=== PATIENT | female | born 1990 | race Caucasian/White ===

== ENCOUNTER 2020-02-06 07:00 | Outpatient (CLI) | payer OTHER ==
[2020-02-06 21:18] LABS: TRICHOMONAS VAGINALIS DNA NEGATIVE (NEGATIVE)
== END 2020-02-06 23:59 | disposition home or self-care (01) ==
LOC: LAB.R 07:00
PROVIDERS: ATTEND Advanced Practice Midwife
DX: Z36.85 Encounter for antenatal screening for Streptococcus B (principal); Z34.80 Encounter for supervision of other normal pregnancy, unspecified trimester; Z36.89 Encounter for other specified antenatal screening
CPT/HCPCS: 87491; 87591; 87661; 87797

== ENCOUNTER 2020-02-13 16:09 | Outpatient (CLI) | payer OTHER ==
[2020-02-13 16:26] LABS: MEAN CORPUSCULAR HEMOGLOBIN 31.4 pg (27.0-31.0); MEAN CORPUSCULAR HGB CONC 33.6 g/dL (32.0-36.0); MEAN CORPUSCULAR VOLUME 93.7 fL (81.0-99.0); MEAN PLATELET VOLUME 9.1 fL (7.9-10.8); RED BLOOD COUNT 3.18 10^6/uL (4.20-5.40); RED CELL DISTRIBUTION WIDTH 12.2 % (12.0-15.0); WHITE BLOOD COUNT 11.6 x10^3/uL (4.8-10.8)
== END 2020-02-13 16:10 | disposition home or self-care (01) ==
LOC: LAB 16:09
PROVIDERS: ATTEND Advanced Practice Midwife
DX: O99.013 Anemia complicating pregnancy, third trimester (principal)
CPT/HCPCS: 36415; 85027

== ENCOUNTER 2020-02-20 12:43 | Outpatient (CLI) | payer OTHER ==
[2020-02-20] MEDS ORDERED: FERRIC GLUCONATE 125 MG in SODIUM CHLORIDE 0.9% 100ML 100 ML IV ONE (13:02)
[2020-02-20] MEDS ORDERED: ONDANSETRON 4 MG/2 ML VIAL IVP PRN (13:02)
--- NOTE | 2020-02-20 13:02 | PROVIDER PROGRESS NOTE ---
Subjective - Prog Note Date Prog Note Date: 02/20/20 Prog Note Time: 13:01 - Subjective Pt reports feeling: Improved Subjective: Nannette is 38.4 wks and presents with anemia in Iron infusion today Will monitor CBC prior to delivery Discharge diagnosis: Anemia in
[2020-02-20 13:39] VITALS: BP 95/59
== END 2020-02-20 14:45 | disposition home or self-care (01) ==
LOC: WFO 12:43 → FBP 12:45 → WFO 14:45
PROVIDERS: ATTEND Advanced Practice Midwife
DX: O99.013 Anemia complicating pregnancy, third trimester (principal); D64.9 Anemia, unspecified; Z3A.38 38 weeks gestation of pregnancy
CPT/HCPCS: 96365; 96375; J2916

== ENCOUNTER 2020-02-25 01:32 | Inpatient (IN) | payer OTHER ==
[2020-02-25] MEDS ORDERED: METHYLERGONOVINE 0.2 MG/ML VIAL IM PRN (02:38)
[2020-02-25] MEDS ORDERED: LIDOCAINE-MPF 1% 30 ML VIAL ID PRN (02:38)
[2020-02-25] MEDS ORDERED: OXYTOCIN 10 UNIT/ML VIAL IM PRN (02:38)
[2020-02-25] MEDS ORDERED: OXYTOCIN/SODIUM CHLORIDE 500 ML IV PRN (02:38)
[2020-02-25] MEDS ORDERED: SODIUM CHLORIDE FLUSH 0.9% 10 ML SYRINGE IVP PRN (02:38)
[2020-02-25] MEDS ORDERED: TRANEXAMIC ACID 1,000 MG in SODIUM CHLORIDE 0.9% 100ML 100 ML IV PRN (02:38)
[2020-02-25] MEDS ORDERED: ONDANSETRON 4 MG/2 ML VIAL IVP PRN ×2 (02:38→06:20)
[2020-02-25] MEDS ORDERED: CARBOPROST TROMETHAMINE 250 MCG/ML AMP IM PRN (02:38)
[2020-02-25] MEDS ORDERED: miSOPROStoL 200 MCG TABLET BC PRN (02:38)
[2020-02-25] MEDS ORDERED: fentaNYL 100 MCG/2 ML VIAL IVP PRN (02:38)
--- NOTE | 2020-02-25 02:56 | HISTORY & PHYSICAL EXAMINATION ---
Admit History - : 5 Parity: 2 Care: positive: [facility] Risk/History: positive: Other (anemia s/p iv iron) Complications This : positive: None Smoking Status: Current every day smoker - Mother's Labs Mother's Blood Type: positive: O Mother's RH: positive: Negative GBS: positive: Group B Step Negative Rubella Status: positive: Immune - Other Maternal History Other Maternal History: Patient is a 29 yo at 39+2 wga who presents with SROM. Woke from sleep and was in a puddle of fluid. Painful contractions every 3-4 min. No VB. Endorses FM. Desires epidural. uncomplicated other than tobacco use and anema treated with IV iron. Initial U/S: at 11.0wks c/w unsure LMP for ROSALVA of 03/01/2020 O neg- rhogam given 12/16/2019 Rubella immune Genetic testing: Serum Integrated- neg FAS: wnl. placenta posterior. QUEENIE wnl. EFW 13%. LMP dates questioned (one week off?0 f/u- heart wnl Glucola: 103 Antibody- neg TDAP 02/05/2020 GBS & GC/CT at 36.4 weeks neg/neg HSV: denies self and partner Breast pump Rx MOD: . 2yo Jay 6.5# and 10yo Shakeel 7#,BF 1.5yrs each. Spouse: Rina. baby GIRL: Rainy. Feels bigger. pp contraception: wants vasectomy Meds/Allgy - Home Medications Home Medications: Ambulatory Orders Medication Instructions Recorded Confirmed Sulfamethoxazole/Trimethoprim 1 each PO BID #14 tablet 06/30/16 [Sulfamethoxazole-Tmp Ds Tablet] - Allergies Allergies/Adverse Reactions: Allergies Allergy/AdvReac Type Severity Reaction Status Date / Time No Known Drug Allergies Allergy Verified 06/30/16 09:11 Review of Systems - Other Findings Other Findings: As per HPI, otherwise remaining systems are negative. Physical - Abdominal Exam Vital Signs: 83 121/77 Contraction Intensity: positive: Moderate to strong - Monitoring Heart Rate Baseline: 140 mod briseida 15x15 accels no decels Strip Review: positive: Category I - Presentation Presentation: positive: Vertex - Vaginal Exam Membranes: positive: Membranes ruptured Dilation (in cm): 2-3 Effacement (%): 90 Station: positive: 0 Cervical Position: positive: Midposition - Speculum Exam Findings: positive: Gross leak - Other Notes Labor Progress Note/Additional Text: GEN: Uncomfortable with ctx HEENT: NCAT CV: RR RESP: nl effort ABD; gravid, soft between ctx SVE 2-3/90/0. Bulging MADHAV with fetus sitting low in pelvis. Gross leakage of clear fluid EXT: WWP Plan for Labor - Plan For Labor Plan for Labor: 29 yo at 39+2 wga here with SROM SROM: Praveen regularly Expt management with low threshold to start pitocin augmentation FWB: vertex, well grown, GBS negative, Cat I tracing -CEFM PAIN: Desires epidural. OK to place once situated in room ANEMIA: CBC pending Anticipate
[2020-02-25] MEDS ORDERED: ACETAMINOPHEN 325 MG TABLET PO SCH (03:00)
[2020-02-25 03:21] LABS: BASOPHILS # (AUTO) 0.1 10^3/uL (0.0-0.1); BASOPHILS % (AUTO) 0.8 %; EOSINOPHILS # (AUTO) 0.1 10^3/uL (0.0-0.7); EOSINOPHILS % (AUTO) 1.1 %; HGB - HEMOGLOBIN 10.9 g/dL (12.0-16.0); LYMPHOCYTES # (AUTO) 2.9 10^3/uL (1.5-3.5); LYMPHOCYTES % (AUTO) 25.7 %; MEAN CORPUSCULAR HEMOGLOBIN 31.6 pg (27.0-31.0); MEAN PLATELET VOLUME 9.8 fL (7.9-10.8); MONOCYTES # (AUTO) 0.8 10^3/uL (0.0-1.0); MONOCYTES % (AUTO) 6.9 %; NEUTROPHILS # (AUTO) 7.4 10^3/uL (1.5-6.6); NEUTROPHILS % (AUTO) 64.9 %; PLT - PLATELET COUNT 252 10^3/uL (130-450); RED BLOOD COUNT 3.45 10^6/uL (4.20-5.40); RED CELL DISTRIBUTION WIDTH 12.6 % (12.0-15.0); WHITE BLOOD COUNT 11.3 x10^3/uL (4.8-10.8)
[2020-02-25] MEDS: LACTATED RINGERS 1,000 ML IV SCH ×2 (05:16→09:37)
[2020-02-25] MEDS ORDERED: ROPIVACAINE 0.2% 200 MG/100 ML BAG EP ONE (05:46)
[2020-02-25] MEDS ORDERED: diphenhydrAMINE INJ 50 MG/ML VIAL IVP PRN (06:20)
[2020-02-25] MEDS ORDERED: LACTATED RINGERS 500 ML IV ONE (06:20)
[2020-02-25] MEDS ORDERED: ROPIVACAINE 0.2% 200 MG/100 ML BAG EP PRN (06:20)
[2020-02-25] MEDS ORDERED: METOCLOPRAMIDE 10 MG/2 ML VIAL IVP PRN (06:20)
[2020-02-25] MEDS ORDERED: NALBUPHINE 10 MG/ML AMP IVP PRN (06:20)
[2020-02-25] MEDS ORDERED: ePHEDrine 50 MG/ML VIAL IVP PRN (06:20)
[2020-02-25] MEDS ORDERED: NALOXONE 0.4 MG/ML VIAL IVP PRN (06:20)
--- NOTE | 2020-02-25 06:20 | ANESTHESIA ---
Pre-Anesthesia VS, & Labs - Diagnosis IUP, term labor - Procedure epidural for Vital Signs: Temp Pulse Resp BP Pulse Ox 37.4 C 83 16 121/47 L 02/25/20 03:52 02/25/20 03:52 02/25/20 03:52 02/25/20 03:52 Height 5 ft 4 in Weight (kg) 60.6 kg - NPO Last Fluid Intake: t/o noc - Is Patient ?: Yes - Lab Results Current Lab Results: Laboratory Tests 02/25/20 03:00: WBC 11.3 H, RBC 3.45 L, Hgb 10.9 L, Hct 32.1 L, MCV 93.0, MCH 31.6 H, MCHC 34.0, RDW 12.6, Plt Count 252, MPV 9.8, Neut # (Auto) 7.4 H, Lymph # (Auto) 2.9, [place] # (Auto) 0.8, Eos # (Auto) 0.1, Baso # (Auto) 0.1, Absolute Nucleated RBC 0.00, Nucleated RBC % 0.0 Lab results reviewed: Yes Fish Bones: 02/25/20 03:00 Home Medications and Allergies Active Medications Acetaminophen (Tylenol) 650 mg PO Q6H CHRIS Carboprost Tromethamine (Hemabate) 250 mcg IM Q15M PRN PRN Reason: Step 4: Hemorrhage protocol Stop: 02/27/20 02:39 Fentanyl (Fentanyl) 50 mcg IVP Q1H PRN PRN Reason: PAIN Lactated Ringer's (Lr) 1,000 mls @ 150 mls/hr IV .Q6H40M [facility] Last Admin: 02/25/20 05:16 Dose: 150 mls/hr Documented by: Oxytocin/Sodium Chloride (Pitocin/Sodium Chloride) 500 mls @ 999 mls/hr IV PRN PRN; Protocol PRN Reason: POST- HEMORR PREVENTION Stop: 02/27/20 02:39 Tranexamic Acid 1,000 mg/ (Sodium Chloride) 110 mls @ 660 mls/hr IV ONCE PRN PRN Reason: EBL >1200mL and within 3hr Stop: 02/27/20 02:39 Oxytocin/Sodium Chloride (Pitocin/Sodium Chloride) 500 mls @ 1 mls/hr IV TITR CHRIS; Protocol Lidocaine HCl (Xylocaine-Mpf 1% Vial) 30 ml ID ONCE PRN PRN Reason: PERINEAL REPAIR Stop: 02/27/20 02:39 Methylergonovine Maleate (Methergine Inj) 0.2 mg IM ONCE PRN PRN Reason: Step 2: Hemorrhage protocol Stop: 02/27/20 02:39 Misoprostol (Cytotec) 800 mcg BC ONCE PRN PRN Reason: Step 3: Hemorrhage protocol Stop: 02/27/20 02:39 Ondansetron HCl (Zofran Inj) 4 mg IVP Q4H PRN PRN Reason: Nausea / Vomiting Oxytocin (Pitocin) 10 unit IM ONCE PRN PRN Reason: Step one: If no IV access Stop: 02/27/20 02:39 Sodium Chloride (Normal Saline Flush 0.9%) 10 ml IVP PRN PRN PRN Reason: NEEDED PER PROVIDER ORDERS Sodium Chloride (Normal Saline Flush 0.9%) 10 ml IVP 0100,0900,1700 CHRIS Allergies/Adverse Reactions: Allergies Allergy/AdvReac Type Severity Reaction Status Date / Time No Known Drug Allergies Allergy Verified 06/30/16 09:11 Anes History & Medical History - Anesthetic History Anesthesia Complications: reports: No previous complications Family history of Anesthesia Complications: Denies Family history of Malignant Hyperthermia: Denies - Medical History Smoking Status: Former smoker - Surgical History Gynecologic: Breast implants - Obstetrical History : 5 Parity: 2 Events: positive: Other (anemia s/p iv iron) Complications: positive: None Exam General: Alert, Oriented x3, Cooperative Dental: WNL Mouth Openin Fingerbreadth Neck Mobility: Normal Mallampati classification: II Thyromental Distance: greater than 6 cm Respiratory: No respiratory distress Cardiovascular: Regular rate Neurological: Normal speech Mental/Cognitive Status: Alert/Oriented X3, Normal for patient Cognitive Status: Within normal limits Plan Anesthesia Type: Epidural Consent for Procedure(s) Verified and Reviewed: Yes Code Status: Attempt Resuscitation ASA classification: 2-Mild systemic disease Is this case an emergency?: No
[2020-02-25] MEDS ORDERED: SODIUM CHLORIDE 0.9% 500 ML IV ONE (06:52)
[2020-02-25] MEDS: OXYTOCIN/SODIUM CHLORIDE 500 ML IV SCH (06:53)
[2020-02-25] MEDS ORDERED: SODIUM CHLORIDE FLUSH 0.9% 10 ML SYRINGE IVP SCH (09:00)
[2020-02-25] MEDS ORDERED: HYDROCORTISONE 1% CREAM 28 GM TUBE PR PRN (11:40)
[2020-02-25] MEDS ORDERED: SIMETHICONE CHEW 80 MG TABLET PO PRN (11:40)
[2020-02-25] MEDS ORDERED: DOCUSATE SODIUM 100 MG CAPSULE PO PRN (11:40)
[2020-02-25] MEDS ORDERED: ONDANSETRON ODT 4 MG TABLET TL PRN (11:40)
[2020-02-25] MEDS: ACETAMINOPHEN 500 MG TABLET PO SCH ×2 (11:54→21:02)
[2020-02-25] MEDS: IBUPROFEN 600 MG TABLET PO SCH ×2 (11:54→17:28)
[2020-02-25] MEDS ORDERED: LACTATED RINGERS 1,000 ML IV SCH (12:00)
[2020-02-26] MEDS: IBUPROFEN 600 MG TABLET PO SCH ×3 (00:21→12:00)
[2020-02-26] MEDS: ACETAMINOPHEN 500 MG TABLET PO SCH (05:12)
[2020-02-26] MEDS: OXYTOCIN/SODIUM CHLORIDE 500 ML IV SCH (09:53)
--- NOTE | 2020-02-26 11:24 | DELIVERY NOTE ---
Delivery Note - Infant Delivery Method Infant Delivery Method: positive: Spontaneous vaginal delivery - Presentation Presentation: positive: Vertex - Nuchal Cord Nuchal Cord: positive: None - Anesthetic Anesthetic Type: - Amniotic Fluid Description Amniotic Fluid Description: positive: Clear - Laceration Laceration: positive: None - Delivery Outcome Delivery Outcome: positive: Livebirth - [place]: positive: Placed in direct skin contact with mother, Warmed, Moody used sex: positive: Female - Cord Cord: positive: 3 vessels - Placenta Placenta: positive: Intact, Expressed - Estimated Blood Loss Estimated Blood Loss (in cc): 100 - Post Delivery Events Post Delivery Events: positive: No post delivery events - Delivery Comments (Free Text/Narrative) Delivery Comments (Free Text/Narrative): STAGE I: Patient is a 29 yo at 39+2 wga who presented with spontaneous rupture of membranes. Spontaneous contractions. GBS negative. Epidural for pain management. Category I tracing throughout Stage I labor. Complete at 10:48 am STAGE II: Patient commenced pushing at 10:54 and delivered at 10:58. Viable female infant from OA presentation with Apgars 9/9 and weight 2715 g. Infant delivered to mohter's abdomen. No nuchal cord. Cord was clamped x2 and cut after pulsations were complete. STAGE III: Placenta delivered at 11:02 with manual expression. It was examined and found to be intact. Perineum was examined and found to be without laceration. EBL 100 cc. Good hemostasis was noted. Procedure was well tolerated and was without complication.
--- NOTE | 2020-02-26 11:25 | DISCHARGE SUMMARY ---
Discharge Summary Admit Date: 02/25/20 Discharge Date: 02/26/20 Discharging Provider: Rachel Code Status: Attempt Resuscitation Condition at Discharge: Good Discharge Disposition: 01 Home, Self Care - DIAGNOSES Admission Diagnoses: IUP at 39+2 wga Spontaneous rupture of membranes - HPI History of Present Illness: Patient is a 29 yo at 39+2 wga who presented with spontaneous rupture of membranes. Woke from sleep and was in a puddle of fluid. Painful contractions every 3-4 min. No VB. Endorses FM. Desires epidural. uncomplicated other than tobacco use and anema treated with IV iron. Initial U/S: at 11.0wks c/w unsure LMP for ROSALVA of 03/01/2020 O neg- rhogam given 12/16/2019 Rubella immune Genetic testing: Serum Integrated- neg FAS: wnl. placenta posterior. QUEENIE wnl. EFW 13%. LMP dates questioned (one week off?0 f/u- heart wnl Glucola: 103 Antibody- neg TDAP 02/05/2020 GBS & GC/CT at 36.4 weeks neg/neg HSV: denies self and partner Breast pump Rx MOD: . 2yo Jay 6.5# and 10yo Shakeel 7#,BF 1.5yrs each. Spouse: Rina. baby GIRL: Rainy. Feels bigger. pp contraception: wants vasectomy - HOSPITAL COURSE Hospital Course: STAGE I: Patient is a 29 yo at 39+2 wga who presented with spontaneous rupture of membranes. Spontaneous contractions. GBS negative. Epidural for pain management. Category I tracing throughout Stage I labor. Complete at 10:48 am STAGE II: Patient commenced pushing at 10:54 and delivered at 10:58. Viable female from OA presentation with Apgars 9/9 and weight 2715 g. Infant delivered to mohter's abdomen. No nuchal cord. Cord was clamped x2 and cut after pulsations were complete. STAGE III: Placenta delivered at 11:02 with manual expression. It was examined and found to be intact. Perineum was examined and found to be without laceration. EBL 100 cc. Good hemostasis was noted. Procedure was well tolerated and was without complication. course was uncomplicated. By PPD#1, patient was meeting goals for discharge. Discharged to home with routine discharge instructions. - ALLERGIES Allergies/Adverse Reactions: Allergies Allergy/AdvReac Type Severity Reaction Status Date / Time No Known Drug Allergies Allergy Verified 06/30/16 09:11 - MEDICATIONS Home Medications: Ambulatory Orders Medication Instructions Recorded Confirmed Sulfamethoxazole/Trimethoprim 1 each PO BID #14 tablet 06/30/16 [Sulfamethoxazole-Tmp Ds Tablet] - LABS Result Diagrams: 02/25/20 03:00 - FOLLOW UP Follow Up: 1 week with NAPOLEON Fernandez CNM - TIME SPENT Time Spent in Discharge (Minutes): 30
--- NOTE | 2020-02-26 11:27 | Discharge Plan ---
Discharge Plan Problem Reviewed?: Yes Disposition: Home, Self Care Condition: Good Diet: Regular Activity Restrictions: Additional Comments (Nothing in the vagina for 6 weeks: no intercourse/tampons/douching Call for: -fever greater than 100.5F -vaginal bleeding in which you are soaking a pad and horu for 2 hours in a row -Pain that does not improve with pain medications Avoiud tub baths and swimming for 4 weeks) Additional Instructions or Follow Up instructions: Ibuprofen 600 mg by mouth every 6 hours as needed for pain Acetaminophen 1000 mg every 8 hours as needed for pain Docusate 100 -200 mg by mouth twice aa day as needed for constipation No Smoking: If you smoke, Please STOP! Call for help. Follow-up with: Shirley Dorantes ARNP [Provider Admit Priv/Credential] -
--- NOTE | 2020-02-26 11:30 | PROVIDER PROGRESS NOTE ---
Subjective - Prog Note Date Prog Note Date: 02/26/20 Prog Note Time: 11:29 - Subjective Subjective: Doing well. Up and ambulating, tolerating po, voiding, pain well managed. BF going well Objective - Vital Signs/Intake & Output Vital Signs: Vital Signs x48h Temp Pulse Resp BP Pulse Ox 02/26/20 08:00 98.2 F 70 20 111/77 100 02/26/20 05:18 97.7 F 82 16 116/68 100 Intake & Output: Intake & Output 02/23/20 02/24/20 02/25/20 02/26/20 23:59 23:59 23:59 23:59 Intake Total 1474.266 250 Output Total 1475 1 Balance -0.734 249 - Objective General Appearance: positive: No acute distress Respiratory: positive: No respiratory distress Cardiovascular: positive: Other (RR) Abdomen: positive: Non-tender, Other (FF belowumbi) Skin: positive: Color nml Neurologic/Psychiatric: positive: Oriented x3 - Lab Results Fish Bones: 02/25/20 03:00 Assessment/Plan - Problem List (1) Vaginal delivery Impression: Rouine pp care Meeting goals for discharge Routine DC instructions given Dc to home
[2020-02-26 11:49] VITALS: BP 129/46
--- NOTE | 2020-02-26 13:12 | Labor Flowsheet ---
Labor Flowsheet Datetime Report Generated by CPN: 02/26/2020 13:12 Datetime: 02/25/2020 13:29 VITAL SIGNS NBP Sys/Donna/Mean (mmHg): 119 : 62 : 75 Pulse: 79 Datetime: 02/25/2020 13:15 SpO2 (%): 99 Datetime: 02/25/2020 12:01 PAIN Pain Scale: 5 Pain Type: Cramping Pain Location: Abdomen Pain Relief Measures: Pain Medication Given Datetime: 02/25/2020 11:16 Temperature (C): 36.5 Temperature Route: Oral Datetime: 02/25/2020 10:59 Stage of : Recovery MEDICATIONS Pitocin (milliunits): Increased to @ 999 Datetime: 02/25/2020 10:58 UTERINE ACTIVITY Monitor Mode: External Frequency (min): 2-3 Quality: Strong Pattern: Normal: <= 5 Contractions in 10 Minutes Resting Tone (Palpate): Relaxed Contraction Comments: pushing ASSESSMENT A Monitor Mode: External US FHR Baseline Rate : 150 Variability: Moderate 6-25 bpm Decelerations: Variable Category: Category II Comments: pushing Stage 2 Comments: of viable female infant Datetime: 02/25/2020 10:55 LaborFlag: Labor Datetime: 02/25/2020 10:54 STAGE 2 Pushing Position: Pushing with Contractions Pushing Progress: Descent with Pushing Datetime: 02/25/2020 10:52 I/O Interventions: Garcia Discontinued Datetime: 02/25/2020 10:48 VAGINAL EXAM Dilatation (cm): 10.0 Effacement (%): 100 Station: 2 Exam by: K Yasir RNC COMMUNICATION Provider Notified (Name): McSorley Communication Comments: Dr Chelleordelroy called to attend delivery Datetime: 02/25/2020 10:44 Duration (sec): 50-110 Datetime: 02/25/2020 10:30 Accelerations: 15X15 Datetime: 02/25/2020 10:13 Monitor Interventions for FHR: Ultrasound Adjusted Datetime: 02/25/2020 10:11 Patient Position/Activity: Left Lateral Patient Care Comments: pt had moved self into left tilt position, RN assisted pt into more lateral position Datetime: 02/25/2020 10:01 PATIENT CARE IV/Blood Work: IV Bolus Given ml @ 250 Datetime: 02/25/2020 09:40 Monitor Interventions for UA: [place] Adjusted Datetime: 02/25/2020 07:26 Respirations: 18 Datetime: 02/25/2020 07:00 FHR Baseline Changes: No Baseline Change Datetime: 02/25/2020 06:45 Pitocin Checklist: At Least 1 Acceleration of 15 bpm x 15 Seconds in 30 Minutes or Adequate Variabi lity Datetime: 02/25/2020 06:40 Procedures: Sterile Vag Exam Datetime: 02/25/2020 06:30 ANESTHESIA Anesthesia Plans: Epidural Anesthesia Level Check: T9 Datetime: 02/25/2020 06:25 Pain Presence: None/Denies Datetime: 02/25/2020 06:07 Epidural Procedure Other: Pump Started Datetime: 02/25/2020 05:58 Epidural Positioning: Sitting Epidural Procedure: Cath Placed Datetime: 02/25/2020 05:46 PROCEDURE TIME OUT Procedure Verify: Correct Patient Identity; Correct Side and Site are Marked; Accurate Procedure Co nsent Form; Agreement on Procedure to be Done; Correct Patient Position Datetime: 02/25/2020 05:39 Anesthesia Comments: CHEF'S ASSISTANT here to place epidural Datetime: 02/25/2020 05:00 Pain Coping: Breathing Through Contractions Datetime: 02/25/2020 04:00 Pain Assessment Comments: does not want an epidural at this time
== END 2020-02-26 12:15 | disposition home or self-care (01) | DRG 807 ==
LOC: WFO 01:32 → FBP 01:34 → WFO 01:52 → FBP 01:53 → OBS 14:25
PROVIDERS: ADMIT Obstetrics & Gynecology; ATTEND Obstetrics & Gynecology
PROC: 10E0XZZ Delivery of Products of Conception, External Approach (ICD-10-PCS; principal; 2020-02-25)
DX: O99.02 Anemia complicating childbirth (principal); Z37.0 Single live birth; D64.9 Anemia, unspecified; O99.334 Smoking (tobacco) complicating childbirth; F17.200 Nicotine dependence, unspecified, uncomplicated; Z3A.39 39 weeks gestation of pregnancy; Z98.82 Breast implant status
CPT/HCPCS: 85025; A9270; J7120